=== PATIENT | male | born 1980 | race Caucasian/White ===

== ENCOUNTER 2016-04-09 06:01 | Observation (INO) | payer MEDICARE, MEDICAID ==
[2016-04-09] MEDS ORDERED: ONDANSETRON HCL INJ/PF 4 MG/2 ML SDV IV ONE ×2 (06:18→12:17)
[2016-04-09] MEDS ORDERED: NORMAL SALINE 1000 ML 1,000 ML IV ONE ×2 (06:18→07:51)
[2016-04-09 07:10] LABS: ABSOLUTE BASOPHILS # (AUTO) 0.1 10^3/uL (0.0-0.2); ABSOLUTE LYMPHOCYTES (AUTO) 1.3 10^3/uL (0.5-4.7); ABSOLUTE MONOCYTES (AUTO) 0.9 10^3/uL (0.1-1.4); ABSOLUTE NEUT (AUTO) 10.3 10^3/uL (1.7-8.2); BASOPHILS % (AUTO) 0.6 % (0-2); HEMOGLOBIN 17.9 g/dL (13.5-17.0); HGB HCT DIFFERENCE -0.3; LYMPHOCYTES % (AUTO) 10.4 % (13-45); MEAN CORPUSCULAR HEMOGLOBIN 32.5 pg (27.0-33.4); MEAN CORPUSCULAR HGB CONC 33.2 g/dL (32.0-36.0); MEAN CORPUSCULAR VOLUME 98 fl (80-97); MONOCYTES % (AUTO) 7.1 % (3-13); RED BLOOD COUNT 5.51 10^6/uL (4.35-5.55); RED CELL DISTRIBUTION WIDTH 13.6 % (11.5-14.0); SEGMENTED NEUTROPHILS % (AUTO) 81.9 % (42-78); WHITE BLOOD COUNT 12.6 10^3/uL (4.0-10.5)
[2016-04-09] MEDS ORDERED: METOCLOPRAMIDE HCL INJ/PF 10 MG/2 ML SDV IV ONE (07:51)
[2016-04-09] MEDS ORDERED: DIPHENHYDRAMINE HCL 50 MG/ML VIAL IV ONE (07:53)
--- NOTE | 2016-04-09 07:56 | ER Document Report ---
ED GI/ - General Chief Complaint: Nausea/Vomiting Stated Complaint: VOMITING Mode of Arrival: Ambulatory Information source: Patient Notes: Patient states that he has gradually been weaning himself off of Suboxone over the past 2 weeks. Patient states that he has been taking one strip a day for the past few days and stop 2 days ago. Patient states nausea and vomiting started yesterday. Patient's been unable to keep liquids down. Patient complains of abdominal pain from all the vomiting. TRAVEL OUTSIDE OF THE [place] IN LAST 30 DAYS: No - HPI Patient complains to provider of: Abdominal pain, Vomiting Onset: Yesterday Timing/Duration: Persistent Quality of pain: Cramping Pain Level: 3 Location: Other - Generalized abdomen Associated symptoms: Loss of appetite, Nausea, Vomiting. denies: Dysuria, Fever , Urinary hesitancy, Urinary frequency, Urinary retention, Urinary urgency Exacerbated by: Denies Relieved by: Denies Similar symptoms previously: No Recently seen / treated by doctor: No - Related Data Allergies/Adverse Reactions: carbamazepine [From Tegretol] Allergy (Verified 04/09/16 06:05) Past Medical History - General Information source: Patient - Social History Smoking Status: Current Every Day Smoker Chew tobacco use (# tins/day): No Frequency of alcohol use: None Drug Abuse: None Occupation: none Lives with: Family Family History: None Patient has suicidal ideation: No Patient has homicidal ideation: No - Past Medical History Cardiac Medical History: Denies: Hx Hypertension Pulmonary Medical History: Reports: Hx Asthma Neurological Medical History: Reports: Hx Migraine, Hx Seizures - After taking the medication Renal/ Medical History: Denies: Hx Peritoneal Dialysis GI Medical History: Reports: Hx Gastroesophageal Reflux Disease, Hx Irritable Bowel, Hx Ulcer Psychiatric Medical History: Reports: Hx Anxiety, Hx Attention Deficit Hyperactivity Disorder, Hx Bipolar Disorder, Hx Depression, Hx Post Traumatic Stress Disorder Traumatic Medical History: Reports: Hx Fractures - collar bone and arm as child Past Surgical History: Reports: Hx Oral Surgery - wisdom teeth - Immunizations Immunizations up to date: Yes Hx Diphtheria, Pertussis, Tetanus Vaccination: Yes - reports had tetanus immunization 6 months ago Review of Systems - Review of Systems Constitutional: No symptoms reported. denies: Fever, Recent illness EENT: No symptoms reported Cardiovascular: No symptoms reported. denies: Chest pain Respiratory: No symptoms reported. denies: Cough, Short of breath Gastrointestinal: Abdominal pain, Diarrhea, Nausea, Vomiting, Poor appetite, Poor fluid intake Genitourinary: No symptoms reported. denies: Dysuria Male Genitourinary: No symptoms reported Musculoskeletal: No symptoms reported Skin: No symptoms reported Hematologic/Lymphatic: No symptoms reported Neurological/Psychological: No symptoms reported. denies: Headaches Physical Exam - Vital signs Vitals: Temp Pulse Resp BP Pulse Ox 98.1 F 60 20 136/66 H 100 04/09/16 06:06 04/09/16 06:06 04/09/16 06:06 04/09/16 06:06 04/09/16 06:06 - General General appearance: Appears well, Alert In distress: None - HEENT Head: Normocephalic, Atraumatic Eyes: Normal Conjunctiva: Normal Nasal: Normal Mouth/Lips: Normal Mucous membranes: Dry Neck: Normal, Supple. No: Lymphadenopathy - Respiratory Respiratory status: No respiratory distress Chest status: Nontender Breath sounds: Normal. No: Rales, Rhonchi, Stridor, Wheezing Chest palpation: Normal - Cardiovascular Rhythm: Regular Heart sounds: S1 appreciated, S2 appreciated Murmur: No - Abdominal Inspection: Normal Distension: No distension Bowel sounds: Hyperactive Tenderness: Tender - Generalized abdominal tenderness Organomegaly: No organomegaly - Back Back: Normal. No: CVA tenderness - Extremities General upper extremity: Normal inspection, Normal strength General lower extremity: Normal inspection, Normal strength - Neurological Neuro grossly intact: Yes Cognition: Normal Orientation: AAOx4 [place] Coma Scale Eye Opening: Spontaneous [place] Coma Scale Verbal: Oriented Young Coma Scale Motor: Obeys Commands [place] Coma Scale Total: 15 - Psychological Associated symptoms: Normal affect, Normal mood - Skin Skin Temperature: Warm Skin Moisture: Dry Skin Color: Normal Course - Re-evaluation Re-evalutation: 04/09/16 11:11 Patient tolerating oral fluids. Abdomen soft, nontender. Patient states he can follow-up with his mental health provider for help with detox. Consulted with Dr. Coto regarding patient presentation, advises giving patient prescription for anti-medic and having him follow up with his primary doctor. 04/09/16 12:10 Patient has started vomiting again, patient complains of continued nausea. Additional medications ordered. 04/09/16 16:18 Patient resting, denies nausea at present. Discussed plan of care with intention to have patient admitted due to intractable vomiting. Patient agreeable with this plan of care. Consulted with Dr Key who agrees to admit patient as an observation to medical floor - Vital Signs Vital signs: Temp Pulse Resp BP Pulse Ox 99.2 F 56 L 16 133/71 H 99 04/09/16 17:47 04/09/16 17:47 04/09/16 17:47 04/09/16 17:47 04/09/16 17:47 - Laboratory Result Diagrams: 04/09/16 06:43 04/09/16 08:25 Laboratory results interpreted by me: 04/09/16 04/09/16 04/09/16 06:43 08:25 08:25 WBC 12.6 H Hgb 17.9 H Hct 54.0 H MCV 98 H Seg Neutrophils % 81.9 H Lymphocytes % 10.4 L Absolute Neutrophils 10.3 H AST 16 L ALT 19 L Lipase < 10.0 L Urine Protein Urine Ketones [place] < 0.2 L 04/09/16 08:40 WBC Hgb Hct MCV Seg Neutrophils % Lymphocytes % Absolute Neutrophils AST ALT Lipase Urine Protein 100 H Urine Ketones 80 H [place] 04/09/16 11:11 Labs- Entire Visit 04/09/16 04/09/16 04/09/16 06:43 06:43 08:25 WBC 12.6 H RBC 5.51 Hgb 17.9 H Hct 54.0 H MCV 98 H MCH 32.5 MCHC 33.2 RDW 13.6 Plt Count 388 Seg Neutrophils % 81.9 H Lymphocytes % 10.4 L Monocytes % 7.1 Eosinophils % 0.0 Basophils % 0.6 Absolute Neutrophils 10.3 H Absolute Lymphocytes 1.3 Absolute Monocytes 0.9 Absolute Eosinophils 0.0 Absolute Basophils 0.1 Sodium Cancelled 140.9 Potassium Cancelled 4.1 Chloride Cancelled 99 Carbon Dioxide Cancelled 28 Anion Gap Cancelled 14 BUN Cancelled 19 Creatinine Cancelled 0.75 Est GFR ( Amer) Cancelled > 60 Est GFR (Non-Af Amer) Cancelled > 60 Glucose Cancelled 110 Calcium Cancelled 9.1 Total Bilirubin Cancelled 0.4 Direct Bilirubin Cancelled 0.0 AST Cancelled 16 L ALT Cancelled 19 L Alkaline Phosphatase Cancelled 71 Total Protein Cancelled 6.7 Albumin Cancelled 4.0 Lipase < 10.0 L Urine Color Urine Appearance Urine pH Ur Specific [place] Urine Protein Urine Glucose (UA) Urine Ketones Urine Blood Urine Nitrite Urine Bilirubin Urine Urobilinogen Ur Leukocyte Esterase Urine WBC (Auto) Urine RBC (Auto) Squamous Epi Cells Auto Urine Mucus (Auto) Urine Ascorbic Acid 04/09/16 08:40 WBC RBC Hgb Hct MCV MCH MCHC RDW Plt Count Seg Neutrophils % Lymphocytes % Monocytes % Eosinophils % Basophils % Absolute Neutrophils Absolute Lymphocytes Absolute Monocytes Absolute Eosinophils Absolute Basophils Sodium Potassium Chloride Carbon Dioxide Anion Gap BUN Creatinine Est GFR ( Amer) Est GFR (Non-Af Amer) Glucose Calcium Total Bilirubin Direct Bilirubin AST ALT Alkaline Phosphatase Total Protein Albumin Lipase Urine Color YELLOW Urine Appearance SLIGHTLY-CLOUDY Urine pH 7.0 Ur Specific [place] 1.027 Urine Protein 100 H Urine Glucose (UA) NEGATIVE Urine Ketones 80 H Urine Blood NEGATIVE Urine Nitrite NEGATIVE Urine Bilirubin NEGATIVE Urine Urobilinogen NEGATIVE Ur Leukocyte Esterase NEGATIVE Urine WBC (Auto) 1 Urine RBC (Auto) 2 Squamous Epi Cells Auto <1 Urine Mucus (Auto) OCC Urine Ascorbic Acid NEGATIVE 04/09/16 16:19 Labs- Entire Visit 04/09/16 04/09/16 04/09/16 06:43 06:43 08:25 WBC 12.6 H RBC 5.51 Hgb 17.9 H Hct 54.0 H MCV 98 H MCH 32.5 MCHC 33.2 RDW 13.6 Plt Count 388 Seg Neutrophils % 81.9 H Lymphocytes % 10.4 L Monocytes % 7.1 Eosinophils % 0.0 Basophils % 0.6 Absolute Neutrophils 10.3 H Absolute Lymphocytes 1.3 Absolute Monocytes 0.9 Absolute Eosinophils 0.0 Absolute Basophils 0.1 Sodium Cancelled 140.9 Potassium Cancelled 4.1 Chloride Cancelled 99 Carbon Dioxide Cancelled 28 Anion Gap Cancelled 14 BUN Cancelled 19 Creatinine Cancelled 0.75 Est GFR ( Amer) Cancelled > 60 Est GFR (Non-Af Amer) Cancelled > 60 Glucose Cancelled 110 Calcium Cancelled 9.1 Total Bilirubin Cancelled 0.4 Direct Bilirubin Cancelled 0.0 AST Cancelled 16 L ALT Cancelled 19 L Alkaline Phosphatase Cancelled 71 Total Protein Cancelled 6.7 Albumin Cancelled 4.0 Lipase < 10.0 L Urine Color Urine Appearance Urine pH Ur Specific [place] Urine Protein Urine Glucose (UA) Urine Ketones Urine Blood Urine Nitrite Urine Bilirubin Urine Urobilinogen Ur Leukocyte Esterase Urine WBC (Auto) Urine RBC (Auto) Squamous Epi Cells Auto Urine Mucus (Auto) Urine Ascorbic Acid [place] 04/09/16 04/09/16 08:25 08:40 WBC RBC Hgb Hct MCV MCH MCHC RDW Plt Count Seg Neutrophils % Lymphocytes % Monocytes % Eosinophils % Basophils % Absolute Neutrophils Absolute Lymphocytes Absolute Monocytes Absolute Eosinophils Absolute Basophils Sodium Potassium Chloride Carbon Dioxide Anion Gap BUN Creatinine Est GFR ( Amer) Est GFR (Non-Af Amer) Glucose Calcium Total Bilirubin Direct Bilirubin AST ALT Alkaline Phosphatase Total Protein Albumin Lipase Urine Color YELLOW Urine Appearance SLIGHTLY-CLOUDY Urine pH 7.0 Ur Specific [place] 1.027 Urine Protein 100 H Urine Glucose (UA) NEGATIVE Urine Ketones 80 H Urine Blood NEGATIVE Urine Nitrite NEGATIVE Urine Bilirubin NEGATIVE Urine Urobilinogen NEGATIVE Ur Leukocyte Esterase NEGATIVE Urine WBC (Auto) 1 Urine RBC (Auto) 2 Squamous Epi Cells Auto <1 Urine Mucus (Auto) OCC Urine Ascorbic Acid NEGATIVE [place] < 0.2 L 04/09/16 16:59 Labs- Entire Visit 04/09/16 04/09/16 04/09/16 06:43 06:43 08:25 WBC 12.6 H RBC 5.51 Hgb 17.9 H Hct 54.0 H MCV 98 H MCH 32.5 MCHC 33.2 RDW 13.6 Plt Count 388 Seg Neutrophils % 81.9 H Lymphocytes % 10.4 L Monocytes % 7.1 Eosinophils % 0.0 Basophils % 0.6 Absolute Neutrophils 10.3 H Absolute Lymphocytes 1.3 Absolute Monocytes 0.9 Absolute Eosinophils 0.0 Absolute Basophils 0.1 Sodium Cancelled 140.9 Potassium Cancelled 4.1 Chloride Cancelled 99 Carbon Dioxide Cancelled 28 Anion Gap Cancelled 14 BUN Cancelled 19 Creatinine Cancelled 0.75 Est GFR ( Amer) Cancelled > 60 Est GFR (Non-Af Amer) Cancelled > 60 Glucose Cancelled 110 Calcium Cancelled 9.1 Total Bilirubin Cancelled 0.4 Direct Bilirubin Cancelled 0.0 AST Cancelled 16 L ALT Cancelled 19 L Alkaline Phosphatase Cancelled 71 Total Protein Cancelled 6.7 Albumin Cancelled 4.0 Lipase < 10.0 L Urine Color Urine Appearance Urine pH Ur Specific [place] Urine Protein Urine Glucose (UA) Urine Ketones Urine Blood Urine Nitrite Urine Bilirubin Urine Urobilinogen Ur Leukocyte Esterase Urine WBC (Auto) Urine RBC (Auto) Squamous Epi Cells Auto Urine Mucus (Auto) Urine Ascorbic Acid [place] 04/09/16 04/09/16 08:25 08:40 WBC RBC Hgb Hct MCV MCH MCHC RDW Plt Count Seg Neutrophils % Lymphocytes % Monocytes % Eosinophils % Basophils % Absolute Neutrophils Absolute Lymphocytes Absolute Monocytes Absolute Eosinophils Absolute Basophils Sodium Potassium Chloride Carbon Dioxide Anion Gap BUN Creatinine Est GFR ( Amer) Est GFR (Non-Af Amer) Glucose Calcium Total Bilirubin Direct Bilirubin AST ALT Alkaline Phosphatase Total Protein Albumin Lipase Urine Color YELLOW Urine Appearance SLIGHTLY-CLOUDY Urine pH 7.0 Ur Specific [place] 1.027 Urine Protein 100 H Urine Glucose (UA) NEGATIVE Urine Ketones 80 H Urine Blood NEGATIVE Urine Nitrite NEGATIVE Urine Bilirubin NEGATIVE Urine Urobilinogen NEGATIVE Ur Leukocyte Esterase NEGATIVE Urine WBC (Auto) 1 Urine RBC (Auto) 2 Squamous Epi Cells Auto <1 Urine Mucus (Auto) OCC Urine Ascorbic Acid NEGATIVE [place] < 0.2 L 04/09/16 18:24 Discharge - Discharge Clinical Impression: Opioid withdrawal Vomiting Qualifiers: Vomiting type: unspecified Vomiting Intractability: intractable Nausea presence : with nausea Qualified Code(s): R11.2 - Nausea with vomiting, unspecified Condition: Stable Disposition: ADMITTED OBSERVATION Admitting Provider: [facility] Admitted: Medical Floor
[2016-04-09 09:02] LABS: ALANINE AMINOTRANSFERASE 19 U/L (21-72); ALKALINE PHOSPHATASE 71 U/L (38-126); ANION GAP 14 (5-19); ASPARTATE AMINO TRANSFERASE 16 U/L (17-59); BILIRUBIN,TOTAL 0.4 mg/dL (0.2-1.3); BLOOD UREA NITROGEN 19 mg/dL (7-20); CALCIUM 9.1 mg/dL (8.4-10.2); CARBON DIOXIDE 28 mmol/L (22-30); CHLORIDE 99 mmol/L (98-107); CREATININE RESULT 0.75 mg/dL (0.52-1.25); GLUCOSE 110 mg/dL (75-110); POTASSIUM 4.1 mmol/L (3.6-5.0); SODIUM 140.9 mmol/L (137-145); TOTAL PROTEIN 6.7 g/dL (6.3-8.2)
[2016-04-09 09:03] LABS: LIPASE < 10.0 U/L (23-300)
[2016-04-09 09:13] LABS: APPEARANCE,URINE SLIGHTLY-CLOUDY; BILIRUBIN,URINE NEGATIVE (NEGATIVE); GLUCOSE, URINE NEGATIVE (NEGATIVE); KETONES,URINE 80 mg/dL (NEGATIVE); LEUKOCYTE ESTERASE,URINE NEGATIVE (NEGATIVE); NITRITE,URINE NEGATIVE (NEGATIVE); PROTEIN,URINE 100 mg/dL (NEGATIVE); URINE SPECIFIC GRAVITY 1.027; UROBILINOGEN,URINE NEGATIVE mg/dL (<2.0)
[2016-04-09 11:46] LABS: ADD ON TESTING BLD IN LAB ACKNOWLEDGE
[2016-04-09 11:53] LABS: LITHIUM < 0.2 mEq/L (0.6-1.2)
[2016-04-09] MEDS ORDERED: NORMAL SALINE 1000 ML 1,000 ML IV PRN ×2 (12:08→17:43)
[2016-04-09] MEDS ORDERED: PROMETHAZINE HCL 25 MG SUPP.RECT PR ONE (14:37)
[2016-04-09] MEDS ORDERED: FAMOTIDINE INJ/PF 20 MG/2 ML SDV IV ONE (14:40)
--- NOTE | 2016-04-09 22:54 | PDOC H&P ---
History of Present Illness Admission Date/PCP: 04/09/16 18:02 VINAY WATERMAN, History of Present Illness: ANDRE MUNOZ JR is a 35 year old male, he came to emergency room because of persistent vomiting, he was trying to wean himself off Suboxone the last 2 weeks. In the emergency room, the vomiting could not be controlled on admission in 2 days and he was advised by the ED providers. I saw him in emergency room he was seen in the stretcher, is not presently vomiting, he stated to me in the past that he was going to come of the Suboxone, but advised seen to seek medical consultation before stopping the medication because of potential for withdrawal symptoms and that is most likely what he is presently experiencing. Past Medical History Pulmonary Medical History: Reports: Asthma Neurological Medical History: Reports: Migraine, Seizures - After taking the medication GI Medical History: Reports: Crohn's Disease, Gastroesophageal Reflux Disease Psychiatric Medical History: Reports: Attention Deficit Hyperactivity Disorder, Bipolar Disorder, Depression, Post Traumatic Stress Disorder, Substance Abuse - A history of heroin abuse Social History Information Source: Patient Lives with: Family Smoking Status: Current Every Day Smoker Frequency of Alcohol Use: Occasional Hx Recreational Drug Use: Yes Drugs: Marijuana Hx Prescription Drug Abuse: No - Advance Directive Resuscitation Status: Full Code Family History Family History: None Parental Family History Reviewed: Yes Children Family History Reviewed: Yes Sibling(s) Family History Reviewed.: Yes Medication/Allergy Home Medications: Bupropion HCl [Bupropion Xl] 150 mg PO DAILY 04/09/16 [place] Carbonate [Lithobid 300 mg Capsule] 300 mg PO DAILY 04/09/16 Omeprazole Magnesium [Prilosec Otc] 40 mg PO DAILY 04/09/16 Quetiapine Fumarate [Seroquel] 300 mg PO DAILY 04/09/16 Quetiapine Fumarate [Seroquel] 400 mg PO DAILY 04/09/16 Allergies/Adverse Reactions: carbamazepine [From Tegretol] Allergy (Verified 04/09/16 06:05) Review of Systems Constitutional: PRESENT: anorexia Cardiovascular: ABSENT: as per HPI, chest pain, dyspnea on exertion, edema, orthropnea, palpitations, other Respiratory: ABSENT: cough, hemoptysis Gastrointestinal: PRESENT: vomiting Genitourinary: ABSENT: dysuria, hematuria Musculoskeletal: ABSENT: joint swelling Integumentary: ABSENT: rash, wounds Neurological: ABSENT: abnormal gait, abnormal speech, confusion, dizziness, focal weakness, syncope Psychiatric: PRESENT: depression Endocrine: ABSENT: cold intolerance, heat intolerance, menstrual abnormalities, polydipsia, polyuria Hematologic/Lymphatic: ABSENT: easy bleeding, easy bruising, lymphadenopathy Physical Exam Vital Signs: Temp Pulse Resp BP Pulse Ox 98.7 F 66 18 140/76 H 99 04/09/16 21:19 04/09/16 21:19 04/09/16 21:19 04/09/16 21:19 04/09/16 21:19 General appearance: PRESENT: no acute distress, well-developed, well-nourished Head exam: PRESENT: atraumatic, normocephalic Eye exam: PRESENT: conjunctiva pink, EOMI, PERRLA Ear exam: PRESENT: normal external ear exam Mouth exam: PRESENT: moist, tongue midline Respiratory exam: PRESENT: clear to auscultation [place] Cardiovascular exam: PRESENT: RRR, +S1, +S2 GI/Abdominal exam: PRESENT: soft Rectal exam: PRESENT: deferred Neurological exam: PRESENT: alert, CN II-XII grossly intact Skin exam: PRESENT: dry, intact, warm Assessment & Plan - Diagnosis (1) Intractable vomiting Qualifiers: Vomiting type: unspecified Nausea presence: with nausea Qualified Code(s): R11.2 - Nausea with vomiting, unspecified Is this a current diagnosis for this admission?: YesPlan: Patient was admitted directly into the hospital for observation and hydration (2) History of substance abuse Is this a current diagnosis for this admission?: Yes
[2016-04-10] MEDS ORDERED: ONDANSETRON HCL INJ/PF 4 MG/2 ML SDV ONE (00:31)
[2016-04-10] MEDS ORDERED: ONDANSETRON HCL INJ/PF 4 MG/2 ML SDV IV PRN (00:35)
[2016-04-10 04:22] LABS: HEMATOCRIT 44.3 % (37.9-51.0); HGB HCT DIFFERENCE -1.7; MEAN CORPUSCULAR HEMOGLOBIN 32.2 pg (27.0-33.4); MEAN CORPUSCULAR HGB CONC 32.1 g/dL (32.0-36.0); MEAN CORPUSCULAR VOLUME 100 fl (80-97); RED BLOOD COUNT 4.42 10^6/uL (4.35-5.55); RED CELL DISTRIBUTION WIDTH 13.2 % (11.5-14.0); WHITE BLOOD COUNT 8.9 10^3/uL (4.0-10.5)
[2016-04-10 04:32] LABS: ANION GAP 11 (5-19); BLOOD UREA NITROGEN 14 mg/dL (7-20); CARBON DIOXIDE 23 mmol/L (22-30); CHLORIDE 104 mmol/L (98-107); CREATININE RESULT 0.57 mg/dL (0.52-1.25); GLUCOSE 135 mg/dL (75-110); POTASSIUM 3.6 mmol/L (3.6-5.0); SODIUM 137.5 mmol/L (137-145)
[2016-04-10 04:54] LABS: HEMOGLOBIN 14.2 g/dL (13.5-17.0)
[2016-04-10 07:31] VITALS: BP 155/86
[2016-04-10] MEDS ORDERED: ENOXAPARIN SODIUM INJ 40 MG/0.4 ML DISP.SYRIN SUBCUT SCH (08:00)
--- NOTE | 2016-04-12 14:04 | PDOC DISCHARGE SUMMARY ---
General - Admit/Disc Date/PCP Admission Date/Primary Care Provider: 04/09/16 18:02 VINAY WATERMAN, Discharge Date: 04/10/16 - Discharge Diagnosis (1) Intractable vomiting Is this a current diagnosis for this admission?: Yes (2) History of substance abuse Is this a current diagnosis for this admission?: Yes - Additional Information Resuscitation Status: Full Code Home Medications: Bupropion HCl [Bupropion Xl] 150 mg PO DAILY 04/09/16 [place] Carbonate [Lithobid 300 mg Capsule] 300 mg PO DAILY 04/09/16 Omeprazole Magnesium [Prilosec Otc] 40 mg PO DAILY 04/09/16 Quetiapine Fumarate [Seroquel] 300 mg PO DAILY 04/09/16 Quetiapine Fumarate [Seroquel] 400 mg PO DAILY 04/09/16 History of Present Illness History of Present Illness: ANDRE MUNOZ JR is a 35 year old male, he came to emergency room because of persistent vomiting, he was trying to wean himself off Suboxone the last 2 weeks. In the emergency room, the vomiting could not be controlled on admission in 2 days and he was advised by the ED providers. I saw him in emergency room he was seen in the stretcher, is not presently vomiting, he stated to me in the past that he was going to come of the Suboxone, but advised seen to seek medical consultation before stopping the medication because of potential for withdrawal symptoms and that is most likely what he is presently experiencing. Hospital Course Hospital Course: Patient was admitted because of intractable vomiting, he was treated with IV hydration, but patient signed AGAINST MEDICAL ADVICE and left before but management was complete Physical Exam Vital Signs: Temp Pulse Resp BP Pulse Ox 98.4 F 50 L 12 155/86 H 100 04/10/16 04:42 04/10/16 04:42 04/10/16 04:42 04/10/16 04:42 04/10/16 04:42 Intake & Output 04/11/16 04/12/16 04/13/16 06:59 06:59 06:59 Intake Total 300 Balance 300 General appearance: PRESENT: no acute distress Results Laboratory Results: 04/10/16 03:42 04/10/16 03:42
== END 2016-04-10 12:20 | disposition left against medical advice (07) ==
LOC: ER 06:01 → EH 16:28 → UNDOADMOB 16:28 → EH 18:02 → 3N 23:35
PROVIDERS: ADMIT Internal Medicine; ATTEND Internal Medicine
DX: R11.2 Nausea with vomiting, unspecified (principal); F11.10 Opioid abuse, uncomplicated; J45.909 Unspecified asthma, uncomplicated; K50.90 Crohn's disease, unspecified, without complications; K21.9 Gastro-esophageal reflux disease without esophagitis; F90.9 Attention-deficit hyperactivity disorder, unspecified type; F31.9 Bipolar disorder, unspecified; F43.10 Post-traumatic stress disorder, unspecified; F17.210 Nicotine dependence, cigarettes, uncomplicated
CPT/HCPCS: 96376; 99284; 96361; 96374; 96375; 36415 ×2; 83690; 80178; 85025; 85027; 80048; 80053; 81001; G0378 ×2; J1200; J1650; A9270; J3490; J2405 ×2; J7030; S0028

== ENCOUNTER 2019-11-24 23:25 | Emergency (ER) | payer MEDICARE, MEDICAID ==
[2019-11-25 02:09] LABS: APPEARANCE,URINE SLIGHTLY-CLOUDY; BILIRUBIN,URINE NEGATIVE (NEGATIVE); COLOR,URINE YELLOW; GLUCOSE, URINE NEGATIVE (NEGATIVE); KETONES,URINE NEGATIVE (NEGATIVE); LEUKOCYTE ESTERASE,URINE NEGATIVE (NEGATIVE); NITRITE,URINE NEGATIVE (NEGATIVE); PROTEIN,URINE NEGATIVE (NEGATIVE); URINE SPECIFIC GRAVITY 1.023
[2019-11-25 02:12] LABS: ABSOLUTE BASOPHILS # (AUTO) 0.1 10^3/uL (0.0-0.2); ABSOLUTE EOSINOPHILS # (AUTO) 0.2 10^3/uL (0.0-0.6); ABSOLUTE MONOCYTES (AUTO) 0.9 10^3/uL (0.1-1.4); ABSOLUTE NEUT (AUTO) 6.2 10^3/uL (1.7-8.2); BASOPHILS % (AUTO) 0.8 % (0-2); EOSINOPHILS % (AUTO) 1.4 % (0-6); HEMATOCRIT 47.1 % (37.9-51.0); LYMPHOCYTES % (AUTO) 35.5 % (13-45); MEAN CORPUSCULAR HEMOGLOBIN 33.6 pg (27.0-33.4); MEAN CORPUSCULAR VOLUME 99 fl (80-97); MONOCYTES % (AUTO) 7.7 % (3-13); PLATELET COUNT 403 10^3/uL (150-450); RED BLOOD COUNT 4.76 10^6/uL (4.35-5.55); RED CELL DISTRIBUTION WIDTH 13.5 % (11.5-14.0); SEGMENTED NEUTROPHILS % (AUTO) 54.6 % (42-78); TOTAL CELLS COUNTED % (AUTO) 100 %; WHITE BLOOD COUNT 11.3 10^3/uL (4.0-10.5)
[2019-11-25 02:29] LABS: ALBUMIN 4.3 g/dL (3.5-5.0); ALKALINE PHOSPHATASE 49 U/L (38-126); ANION GAP 9 (5-19); ASPARTATE AMINO TRANSFERASE 26 U/L (17-59); BILIRUBIN,DIRECT 0.3 mg/dL (0.0-0.4); BILIRUBIN,TOTAL 0.5 mg/dL (0.2-1.3); BLOOD UREA NITROGEN 17 mg/dL (7-20); CALCIUM 9.5 mg/dL (8.4-10.2); CARBON DIOXIDE 24 mmol/L (22-30); CHLORIDE 107 mmol/L (98-107); GLUCOSE 106 mg/dL (75-110); POTASSIUM 4.7 mmol/L (3.6-5.0); TOTAL PROTEIN 6.9 g/dL (6.3-8.2)
[2019-11-25] MEDS ORDERED: MORPHINE SULFATE 10 MG/ML INJ IV ONE (04:35)
[2019-11-25] MEDS ORDERED: NORMAL SALINE 1000 ML 1,000 ML IV ONE (04:35)
[2019-11-25] MEDS ORDERED: ONDANSETRON HCL INJ/PF 4 MG/2 ML SDV IV ONE (04:36)
--- NOTE | 2019-11-25 04:40 | ER Document Report ---
Entered by ROSANNA CAMARILLO SCRIBE 11/25/19 0438 Acting as scribe for:MATT KOHLI IV, MD ED GI/ - General Mode of Arrival: Ambulatory Information source: Patient TRAVEL OUTSIDE OF THE [place] IN LAST 30 DAYS: No <MATT KOHLI IV - Last Filed: 11/25/19 06:44> <ALBERTOREBEKAH - Last Filed: 11/25/19 08:53> - General Chief Complaint: Abdominal Pain Stated Complaint: ABDOMINAL PAIN Time Seen by Provider: 11/25/19 04:28 Primary Care Provider: VINAY WATERMAN MD [Primary Care Provider] - Follow up as needed Notes: This 39 year old male patient presents to the ED today with complaints of epigastric pain that started yesterday morning. Patient states that the pain worsened throughout the day and now radiates into his back. Denies nausea or vomiting. Denies history of pancreatitis or ETOH use. (MATT KOHLI IV) - Related Data Allergies/Adverse Reactions: carbamazepine [From Tegretol] Allergy (Verified 11/25/19 01:22) Past Medical History - General Information source: Patient, [facility] Records - Social History Smoking Status: Current Every Day Smoker Smoking Education Provided: No Frequency of alcohol use: None Drug Abuse: None Family History: Reviewed & Not Pertinent Patient has suicidal ideation: No Patient has homicidal ideation: No Pulmonary Medical History: Reports: Hx Asthma Neurological Medical History: Reports: Hx Migraine, Hx Seizures - After taking the medication GI Medical History: Reports: Hx Crohn's Disease, Hx Gastroesophageal Reflux Dis ease, Hx Irritable Bowel, Hx Ulcer Psychiatric Medical History: Reports: Hx Anxiety, Hx Attention Deficit Hyperactivity Disorder, Hx Bipolar Disorder, Hx Depression, Hx Post Traumatic Stress Disorder, Hx Schizophrenia Traumatic Medical History: Reports: Hx Fractures - collar bone and arm as child Past Surgical History: Reports: Hx Oral Surgery - wisdom teeth - Immunizations Immunizations up to date: Yes Hx Diphtheria, Pertussis, Tetanus Vaccination: Yes - reports had tetanus immunization 6 months ago <MATT KOHLI IV - Last Filed: 11/25/19 06:44> Review of Systems - Review of Systems Constitutional: No symptoms reported EENT: No symptoms reported Cardiovascular: No symptoms reported Respiratory: No symptoms reported Gastrointestinal: See HPI, Abdominal pain. denies: Nausea, Vomiting Genitourinary: No symptoms reported Male Genitourinary: No symptoms reported Musculoskeletal: See HPI, Back pain Skin: No symptoms reported Hematologic/Lymphatic: No symptoms reported Neurological/Psychological: No symptoms reported -: Yes All other systems reviewed and negative <MATT KOHLI IV - Last Filed: 11/25/19 06:44> Physical Exam - General General appearance: Appears well, Alert In distress: None - HEENT Head: Normocephalic, Atraumatic Eyes: Normal Pupils: PERRL - Respiratory Respiratory status: No respiratory distress Chest status: Nontender Breath sounds: Normal Chest palpation: Normal - Cardiovascular Rhythm: Regular Heart sounds: Normal auscultation Murmur: No Friction rub: No Gallop: None auscultated - Abdominal Inspection: Normal Distension: No distension Bowel sounds: Normal - No aortic bruits Tenderness: Tender - Epigastric tenderness to palpation, Other - Abdomen soft. No: Guarding, Rebound Organomegaly: No organomegaly. No: Mass - No pulsatile masses - Back Back: Normal, Nontender - Extremities General upper extremity: Normal inspection General lower extremity: Normal inspection. No: Edema - Neurological Neuro grossly intact: Yes Orientation: AAOx4 [place] Coma Scale Eye Opening: Spontaneous [place] Coma Scale Verbal: Oriented [place] Coma Scale Motor: Obeys Commands [place] Coma Scale Total: 15 - Psychological Associated symptoms: Normal affect, Normal mood - Skin Skin Temperature: Warm Skin Moisture: Dry Skin Color: Normal <MATT KOHLI IV - Last Filed: 11/25/19 06:44> - Vital signs Vitals: Temp Pulse Resp BP Pulse Ox 98.2 F 90 16 147/93 H 97 11/24/19 23:39 11/24/19 23:39 11/24/19 23:39 11/24/19 23:39 11/24/19 23:39 Course - Laboratory Result Diagrams: 11/25/19 01:29 11/25/19 01:29 - Transfer of Care Care transferred to following provider: dr suresh at 0643 <MATT KOHLI JULIANA - Last Filed: 11/25/19 06:44> - Laboratory Result Diagrams: 11/25/19 01:29 11/25/19 01:29 - Diagnostic Test Radiology reviewed: Reports reviewed <REBEKAH DOMINGUEZ - Last Filed: 11/25/19 08:53> - Re-evaluation Re-evalutation: 11/25/19 08:44 CT abdomen report reviewed. Per radiology, no adjacent inflammation or peripancreatic fluid collections. Final impression no significant or acute findings in the abdomen or pelvis. 11/25/19 08:51 I went in and updated the patient on the results. He is well-appearing, he feels comfortable going home. I discussed with him need for PCP follow-up for further work-up of recurrent pancreatitis. He will be discharged with Tiara and Kenisha. Return precautions given, stable at time of discharge. (REBEKAH DOMINGUEZ) - Vital Signs Vital signs: Temp Pulse Resp BP Pulse Ox 98.2 F 90 16 147/93 H 97 11/25/19 01:22 11/24/19 23:39 11/24/19 23:39 11/24/19 23:39 11/24/19 23:39 - Laboratory Laboratory results interpreted by me: 11/25/19 11/25/19 11/25/19 01:29 01:29 01:41 WBC 11.3 H MCV 99 H MCH 33.6 H Lipase 594.9 H Urine Urobilinogen 2.0 H Urine Ascorbic Acid 40 H Discharge <MATT KOHLI IV - Last Filed: 11/25/19 06:44> <REBEKAH DOMINGUEZ - Last Filed: 11/25/19 08:53> - Discharge Clinical Impression: Pancreatitis Qualifiers: Chronicity: acute Pancreatitis type: other Acute pancreatitis complication: unspecified Qualified Code(s): K85.80 - Other acute pancreatitis without necros is or infection Condition: Stable Disposition: HOME, SELF-CARE Additional Instructions: Return to the Emergency Department without delay if any worse. Pancreatitis Pancreatitis is an inflammation of the pancreas, an organ at the back of your abdomen. The pancreas produces insulin and enzymes that digest your food. Pancreatitis can be caused by gallstones in the bile duct, by alcohol or viruses, or by excess fat or calcium in the blood stream. Occasionally, pancreatitis occurs when a stomach ulcer conrad through into the pancreas. We try to find the cause of pancreatitis, but some tests can't be done until the pancreas heals. The usual symptoms of pancreatitis are pain in the pit of the stomach that goes straight through to the back, vomiting, and low-grade fever. Severe cases require hospital admission, but many patients with mild pancreatitis do well at home. You will probably need medicine for pain and for vomiting. Sometimes we prescribe medicine to decrease stomach acid secretion and to decrease flow of pancreatic juices. Start with a diet of clear liquids (soda pop, juices). When the pain is decreasing, you can add some simple starches (potato, toast, applesauce). Avoid proteins and fats until you are completely painfree. When you're better, your doctor may suggest treatment to prevent future pancreatitis (such as gallbladder removal). Avoid alcohol forever. Get im mediate treatment for any future episodes. Contact your doctor at once or return here if you have increasing pain, shortness of breath, general swelling, increasing size of the abdomen, continued vomiting, muscle spasms, or other new symptoms. HOME CARE INSTRUCTIONS & INFORMATION: Thank you for choosing us for your medical needs. We hope you're satisfied with the care you received. After you leave, you must properly care for your problem and, at the same time, observe its progress. Any condition can change. Some illnesses can change rapidly over hours or days. If your condition worsens, return to the Emergency Department or see your physician promptly. ABOUT YOUR X-RAYS AND EKG'S: If you had an EKG or X-rays taken, they have been read by the Emergency Physician. The X-rays and EKG's will also be read by a Radiologist or Boiler Coverer Helper within 24 hours. If discrepancies are noted, you will be notified by telephone. Please be certain the ED has a correct telephone number & address where you can be reached. Also, realize that some fractures or abnormalities do not show up on initial X-rays. If your symptoms continue, see your physician. ABOUT YOUR LABORATORY TEST: If you had laboratory tests, the results have been reviewed by the Emergency Physician. Some test results (for example cultures) may not be available for several days. You will be contacted if any test result shows you need additional treatment. Please be certain the ED has a correct telephone number and address where you can be reached. ABOUT YOUR MEDICATIONS: You will receive instructions on how to take your medicine on the prescription label you receive. Additional information may be provided by the Pharmacy. If you have questions afterwards, call the ED for clarification or further instructions. Some prescribed medications may cause drowsiness. Do not perform tasks such as driving a car or operating machinery without consulting your Pharmacist. If you feel you need a refill of pain medication, your condition will need re-evaluation. Please do not call for a refill of any medication. ABOUT YOUR SIGNATURE: Signature of this document acknowledges to followin. Understanding that you received emergency treatment and that you may be released before al medical problems are known or treated. Please be certain the ED has a correct phone number & address where you can be reached. 2. Acknowledgement that you will arrange for follow-up care as recommended. 3. Authorization for the Emergency Physician to provide information to your follow-up Physician in order to maximize your care. AT ANY TIME, IF YOUR SYMPTOMS CHANGE SIGNIFICANTLY OR WORSEN OR YOU DEVELOP NEW SYMPTOMS, RETURN TO THE EMERGENCY DEPARTMENT IMMEDIATELY FOR RE-EVALUATION. OUR GOAL IS TO PROVIDE EXCELLENT MEDICAL CARE! WE HOPE THAT WE HAVE MET YOUR EXPECTATIONS DURING YOUR EMERGENCY DEPARTMENT VISIT AND THAT YOU FEEL YOU HAVE RECEIVED EXCELLENT CARE! Prescriptions: Hydrocodone/Acetaminophen [[place] 5-325 mg Tablet] 1 tab PO Q4H PRN #20 tablet PRN Reason: For Pain Ondansetron [Zofran Odt 4 mg Tablet] 1 - 2 tab PO Q4H PRN #15 tab.rapdis PRN Reason: For Nausea/Vomiting Referrals: VINAY WATERMAN MD [Primary Care Provider] - Follow up as needed I personally performed the services described in the documentation, reviewed and edited the documentation which was dictated to the scribe in my presence, and it accurately records my words and actions.
--- NOTE | 2019-11-25 08:37 | RADIOLOGY REPORT (SQ) ---
EXAM DESCRIPTION: CT ABD/PELVIS WITH IV ORAL IMAGES COMPLETED DATE/TIME: 11/25/2019 7:02 am REASON FOR STUDY: epigastric pain COMPARISON: 08/24/2014. TECHNIQUE: CT scan of the abdomen and pelvis performed with intravenous and oral contrast using lissa randa scanning technique with dynamic intravenous contrast injection. Images reviewed with lung, soft t issue, and bone windows. Reconstructed coronal and sagittal MPR images reviewed. Delayed images for e valuation of the urinary system also acquired. All images stored on PACS. All CT scanners at this facility use dose modulation, iterative reconstruction, and/or weight based d osing when appropriate to reduce radiation dose to as low as reasonably achievable (ALARA). [facility]: Dose Right [facility]: CareDose [facility]: Dose Right [facility]: Teradose 4D [facility]: [employer] CONTRAST TYPE AND DOSE: contrast/concentration: Isovue 350.00 mmol/ml; Total Contrast Delivered: 85. 0 ml; Total Saline Delivered: 69.0 ml RENAL FUNCTION: BUN 17 creatinine 0.69. RADIATION DOSE: CT Rad equipment meets quality standard of care and radiation dose reduction techniq ues were employed. CTDIvol: 5.6 - 7.4 mGy. DLP: 712 mGy-cm.. LIMITATIONS: None. FINDINGS: LOWER CHEST: No significant findings. No nodules or infiltrates. LIVER: Normal size. No masses. No dilated ducts. SPLEEN: Normal size. No focal lesions. PANCREAS: No masses. No significant calcifications. No adjacent inflammation or peripancreatic fluid collections. Pancreatic duct not dilated. GALLBLADDER: No identified stones by CT criteria. No inflammatory changes to suggest cholecystitis. ADRENAL GLANDS: No significant masses or asymmetry. RIGHT KIDNEY AND URETER: No solid masses. No significant calcification. No hydronephrosis or hydroure ter. LEFT KIDNEY AND URETER: No solid masses. No significant calcification. No hydronephrosis or hydrouret er. AORTA AND VESSELS: No aneurysm. No dissection. Renal arteries, SMA, celiac without stenosis. RETROPERITONEUM: No retroperitoneal adenopathy, hemorrhage or masses. BOWEL AND PERITONEAL CAVITY: No obstruction. No visualized masses. No free fluid. No inflammatory ch anges or thickening of bowel wall. APPENDIX: Not visualized. PELVIS: No significant masses. Normal bladder. No free fluid. ABDOMINAL WALL: No masses. No hernias. BONES: No significant or acute findings. OTHER: No other significant finding. IMPRESSION: NO SIGNIFICANT OR ACUTE FINDINGS IN THE ABDOMEN OR PELVIS. TECHNICAL DOCUMENTATION: JOB ID: [id number] Quality ID # [id number]: Final reports with documentation of one or more dose reduction techniques (e.g., Au tomated exposure control, adjustment of the mA and/or kV according to patient size, use of iterative reconstruction technique) 2010 [employer]- All Rights Reserved Reading location - IP/workstation name: [email or web address]
[2019-11-25 09:18] VITALS: BP 157/90
== END 2019-11-25 09:16 | disposition home or self-care (01) ==
LOC: ER 23:25
DX: K85.90 Acute pancreatitis without necrosis or infection, unspecified (principal); R10.13 Epigastric pain; R10.816 Epigastric abdominal tenderness; M54.9 Dorsalgia, unspecified; J45.909 Unspecified asthma, uncomplicated; F17.200 Nicotine dependence, unspecified, uncomplicated; Z87.19 Personal history of other diseases of the digestive system; Z88.8 Allergy status to other drugs, medicaments and biological substances
CPT/HCPCS: 99285; 96361; 96374; 96375; 36415; 83690; 85025; 80053; 81001; 74177; J2270; J2405; J7030

== ENCOUNTER 2019-11-29 08:03 | Emergency (ER) | payer MEDICARE, MEDICAID ==
[2019-11-29] MEDS ORDERED: FENTANYL CITRATE INJ/PF 100 MCG/2 ML AMPUL IV ONE (09:19)
[2019-11-29] MEDS ORDERED: KETOROLAC TROMETHAMINE INJ/PF 30 MG/1 ML SDV IV ONE (09:19)
[2019-11-29] MEDS ORDERED: METOCLOPRAMIDE HCL INJ/PF 10 MG/2 ML SDV IV ONE (09:19)
--- NOTE | 2019-11-29 09:21 | ER Document Report ---
ED General - General Chief Complaint: Abdominal Pain Stated Complaint: ABDOMINAL PAIN Time Seen by Provider: 11/29/19 09:13 Primary Care Provider: VINAY WATERMAN MD [Primary Care Provider] - Follow up as needed Notes: Presents epigastric pain "is my pancreatitis" which is going on for last few days. He was seen here 3 days ago diagnosed with mild pancreatitis discharged home with Percocet and antiemetics. He promptly resumed the [employer] diet and drink several bloody Zenobia's. His imaging last time was normal. TRAVEL OUTSIDE OF THE [place] IN LAST 30 DAYS: No - Related Data Allergies/Adverse Reactions: carbamazepine [From Tegretol] Allergy (Verified 11/25/19 01:22) Home Medications: clonidine Past Medical History - General Information source: Patient - Social History Smoking Status: Current Every Day Smoker Frequency of alcohol use: Rare Drug Abuse: None Family History: Reviewed & Not Pertinent - Past Medical History Cardiac Medical History: Denies: Hx Hypertension Pulmonary Medical History: Reports: Hx Asthma Neurological Medical History: Reports: Hx Migraine, Hx Seizures - After taking the medication Renal/ Medical History: Denies: Hx Peritoneal Dialysis GI Medical History: Reports: Hx Crohn's Disease, Hx Gastroesophageal Reflux Disease, Hx Irritable Bowel, Hx Ulcer Psychiatric Medical History: Reports: Hx Anxiety, Hx Attention Deficit Hypera ctivity Disorder, Hx Bipolar Disorder, Hx Depression, Hx Post Traumatic Stress Disorder, Hx Schizophrenia Traumatic Medical History: Reports: Hx Fractures - collar bone and arm as child Past Surgical History: Reports: Hx Oral Surgery - wisdom teeth - Immunizations Immunizations up to date: Yes Hx Diphtheria, Pertussis, Tetanus Vaccination: Yes - reports had tetanus immunization 6 months ago Review of Systems - Review of Systems Notes: REVIEW OF SYSTEMS GEN: Denies fever, chills, weight loss ENT: Denies sore throat, nasal discharge, ear pain EYES: Denies blurry vision, eye pain, discharge CV: Denies chest pain, palpitations, edema RESP: Denies cough, shortness of breath, wheezing GI: Abdominal pain and nausea SKIN: Denies rash, skin lesions LYMPH: Denies swollen glands/lymph nodes NEURO: Denies headache, focal weakness or numbness, dizziness PSYCH: Denies depression, suicidal or homicidal ideation PHYSICAL EXAMINATION General: No acute distress, well-nourished Head: Atraumatic, normocephalic ENT: Mouth normal, oropharynx moist, no exudates or tonsillar enlargement Eyes: Conjunctiva normal, pupils equal, lids normal Neck: No JVD, supple, no guarding CVS: Normal rate, regular rhythm, no murmurs Resp: No resp distress, equal and normal breath sounds bilaterally GI: Nondistended, soft, minimal epigastric tenderness no rebound or guarding guarding Ext: No deformities, no edema, normal range of motion in upper and lower ext Back: No CVA or midline TTP Skin: No rash, warm Lymphatic: No lymphadeopathy noted Neuro: Awake, alert. Face symmetric. GCS 15. Physical Exam - Vital signs Vitals: Temp Pulse Resp BP Pulse Ox 98.8 F 113 H 18 141/100 H 99 11/29/19 08:08 11/29/19 08:08 11/29/19 08:08 11/29/19 08:08 11/29/19 08:08 Course - Re-evaluation Re-evalutation: 11/29/19 09:21 Acute on chronic pancreatitis likely flaring secondary to missed education of the patient where he is resuming a normal diet and drinking alcohol. Will check lipase but does not need imaging is minimally tender will treat with medication and plan for discharge with resuming liquid diet. 11/29/19 14:34 Lipase normal labs otherwise normal. Tolerating p.o. Discussed diet liquid diet alcohol eversion etc. I have discussed with the patient there likely diagnosis, aftercare plan, follow-up plans and my usual and customary return precautions. They verbalized understanding of this. - Vital Signs Vital signs: Temp Pulse Resp BP Pulse Ox 97.9 F 74 18 128/85 H 97 11/29/19 11:37 11/29/19 11:37 11/29/19 11:37 11/29/19 11:37 11/29/19 11:37 - Laboratory Result Diagrams: 11/29/19 09:31 11/29/19 09:31 Laboratory results interpreted by me: 11/29/19 11/29/19 09:31 09:31 MCV 98 H MCH 34.5 H Urine Urobilinogen 2.0 H Urine Ascorbic Acid 40 H Discharge - Discharge Clinical Impression: Acute pancreatitis Qualifiers: Pancreatitis type: other Acute pancreatitis complication: unspecified Qualified Code(s): K85.80 - Other acute pancreatitis without necrosis or infection Condition: Good Disposition: HOME, SELF-CARE Instructions: Pancreatitis (OM) Prescriptions: Promethazine HCl [Phenergan 25 mg Supp.rect] 1 supp CO Q6H #12 supp.rect Referrals: VINAY WATERMAN MD [Primary Care Provider] - Follow up as needed
[2019-11-29 10:10] LABS: ABSOLUTE BASOPHILS # (AUTO) 0.1 10^3/uL (0.0-0.2); ABSOLUTE EOSINOPHILS # (AUTO) 0.1 10^3/uL (0.0-0.6); ABSOLUTE LYMPHOCYTES (AUTO) 2.1 10^3/uL (0.5-4.7); ABSOLUTE MONOCYTES (AUTO) 0.6 10^3/uL (0.1-1.4); ABSOLUTE NEUT (AUTO) 5.8 10^3/uL (1.7-8.2); BASOPHILS % (AUTO) 0.8 % (0-2); EOSINOPHILS % (AUTO) 1.2 % (0-6); HEMATOCRIT 44.9 % (37.9-51.0); HEMOGLOBIN 15.8 g/dL (13.5-17.0); LYMPHOCYTES % (AUTO) 24.1 % (13-45); MEAN CORPUSCULAR HEMOGLOBIN 34.5 pg (27.0-33.4); MEAN CORPUSCULAR HGB CONC 35.3 g/dL (32.0-36.0); MEAN CORPUSCULAR VOLUME 98 fl (80-97); MONOCYTES % (AUTO) 6.8 % (3-13); PLATELET COUNT 382 10^3/uL (150-450); RED BLOOD COUNT 4.59 10^6/uL (4.35-5.55); RED CELL DISTRIBUTION WIDTH 13.5 % (11.5-14.0); SEGMENTED NEUTROPHILS % (AUTO) 67.1 % (42-78); TOTAL CELLS COUNTED % (AUTO) 100 %; WHITE BLOOD COUNT 8.6 10^3/uL (4.0-10.5)
[2019-11-29 10:27] LABS: ALBUMIN 4.6 g/dL (3.5-5.0); ALKALINE PHOSPHATASE 52 U/L (38-126); ANION GAP 9 (5-19); ASPARTATE AMINO TRANSFERASE 26 U/L (17-59); BILIRUBIN,DIRECT 0.3 mg/dL (0.0-0.4); BILIRUBIN,TOTAL 0.6 mg/dL (0.2-1.3); BLOOD UREA NITROGEN 15 mg/dL (7-20); CALCIUM 9.6 mg/dL (8.4-10.2); CARBON DIOXIDE 25 mmol/L (22-30); CHLORIDE 103 mmol/L (98-107); GLUCOSE 90 mg/dL (75-110); POTASSIUM 4.8 mmol/L (3.6-5.0); TOTAL PROTEIN 7.4 g/dL (6.3-8.2)
[2019-11-29 10:30] LABS: APPEARANCE,URINE CLEAR; BILIRUBIN,URINE NEGATIVE (NEGATIVE); COLOR,URINE YELLOW; GLUCOSE, URINE NEGATIVE (NEGATIVE); KETONES,URINE NEGATIVE (NEGATIVE); LEUKOCYTE ESTERASE,URINE NEGATIVE (NEGATIVE); NITRITE,URINE NEGATIVE (NEGATIVE); PROTEIN,URINE NEGATIVE (NEGATIVE); URINE SPECIFIC GRAVITY 1.021
[2019-11-29 11:34] VITALS: BP 128/85
== END 2019-11-29 11:34 | disposition home or self-care (01) ==
LOC: ER 08:03
DX: K85.80 Other acute pancreatitis without necrosis or infection (principal); R10.9 Unspecified abdominal pain; R11.0 Nausea; Z79.899 Other long term (current) drug therapy; Z88.8 Allergy status to other drugs, medicaments and biological substances; F17.200 Nicotine dependence, unspecified, uncomplicated; J45.909 Unspecified asthma, uncomplicated
CPT/HCPCS: 99284; 96374; 96375; 36415; 83690; 85025; 80053; 81001; J3010; J1885; J2765

== ENCOUNTER 2019-12-08 08:19 | Emergency (ER) | payer MEDICARE, MEDICAID ==
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
[2019-12-08 09:27] LABS: ABSOLUTE BASOPHILS # (AUTO) 0.1 10^3/uL (0.0-0.2); ABSOLUTE EOSINOPHILS # (AUTO) 0.1 10^3/uL (0.0-0.6); ABSOLUTE LYMPHOCYTES (AUTO) 2.4 10^3/uL (0.5-4.7); ABSOLUTE MONOCYTES (AUTO) 0.6 10^3/uL (0.1-1.4); ABSOLUTE NEUT (AUTO) 5.4 10^3/uL (1.7-8.2); BASOPHILS % (AUTO) 0.8 % (0-2); EOSINOPHILS % (AUTO) 1.6 % (0-6); HEMATOCRIT 44.8 % (37.9-51.0); HEMOGLOBIN 15.7 g/dL (13.5-17.0); LYMPHOCYTES % (AUTO) 27.7 % (13-45); MEAN CORPUSCULAR HEMOGLOBIN 34.5 pg (27.0-33.4); MEAN CORPUSCULAR VOLUME 99 fl (80-97); MONOCYTES % (AUTO) 6.7 % (3-13); PLATELET COUNT 397 10^3/uL (150-450); RED BLOOD COUNT 4.54 10^6/uL (4.35-5.55); SEGMENTED NEUTROPHILS % (AUTO) 63.2 % (42-78); TOTAL CELLS COUNTED % (AUTO) 100 %; WHITE BLOOD COUNT 8.6 10^3/uL (4.0-10.5)
[2019-12-08 09:35] LABS: APPEARANCE,URINE CLEAR; BILIRUBIN,URINE NEGATIVE (NEGATIVE); COLOR,URINE YELLOW; GLUCOSE, URINE NEGATIVE (NEGATIVE); KETONES,URINE TRACE mg/dL (NEGATIVE); LEUKOCYTE ESTERASE,URINE NEGATIVE (NEGATIVE); NITRITE,URINE NEGATIVE (NEGATIVE); PROTEIN,URINE NEGATIVE (NEGATIVE); URINE SPECIFIC GRAVITY 1.027
[2019-12-08 09:42] LABS: ALBUMIN 4.2 g/dL (3.5-5.0); ALKALINE PHOSPHATASE 51 U/L (38-126); ANION GAP 5 (5-19); ASPARTATE AMINO TRANSFERASE 21 U/L (17-59); BILIRUBIN,DIRECT 0.3 mg/dL (0.0-0.4); BILIRUBIN,TOTAL 0.5 mg/dL (0.2-1.3); BLOOD UREA NITROGEN 16 mg/dL (7-20); CALCIUM 9.4 mg/dL (8.4-10.2); CARBON DIOXIDE 26 mmol/L (22-30); CHLORIDE 110 mmol/L (98-107); GLUCOSE 92 mg/dL (75-110); POTASSIUM 4.4 mmol/L (3.6-5.0); TOTAL PROTEIN 6.9 g/dL (6.3-8.2)
[2019-12-08 09:44] LABS: ACETAMINOPHEN < 10 ug/mL (10-30); ALCOHOL < 10 mg/dL (NONE DETECTED); SALICYLATE < 1.0 mg/dL (2.0-20.0)
[2019-12-08] MEDS ORDERED: NORMAL SALINE 1000 ML 1,000 ML IV ONE (10:54)
--- NOTE | 2019-12-08 11:03 | RADIOLOGY REPORT (SQ) ---
EXAM DESCRIPTION: CT ABD/PELVIS WITH IV ONLY IMAGES COMPLETED DATE/TIME: 12/08/2019 10:43 am REASON FOR STUDY: epigastric abd pain, bilateral flank pain, +nausea COMPARISON: None. TECHNIQUE: CT scan of the abdomen and pelvis performed using helical scanning technique with dynamic intravenous contrast injection. No oral contrast. Images reviewed with lung, soft tissue, and bone windows. Reconstructed coronal and sagittal MPR images reviewed. Delayed images for evaluation of the urinary system also acquired. All images stored on PACS. All CT scanners at this facility use dose modulation, iterative reconstruction, and/or weight based d osing when appropriate to reduce radiation dose to as low as reasonably achievable (ALARA). [facility]: Dose Right [facility]: CareDose [facility]: Dose Right [facility]: Teradose 4D [facility]: RoomReveal CONTRAST TYPE AND DOSE: contrast/concentration: Isovue 350.00 mmol/ml; Total Contrast Delivered: 83. 0 ml; Total Saline Delivered: 69.0 ml RENAL FUNCTION: GFR > 60. RADIATION DOSE: CT Rad equipment meets quality standard of care and radiation dose reduction techniq ues were employed. CTDIvol: 5.4 - 6.8 mGy. DLP: 611 mGy-cm.. LIMITATIONS: None. FINDINGS: LOWER CHEST: No significant findings. No nodules or infiltrates. LIVER: Normal size. No masses. No dilated ducts. SPLEEN: Normal size. No focal lesions. PANCREAS: No masses. No significant calcifications. No adjacent inflammation or peripancreatic fluid collections. Pancreatic duct not dilated. GALLBLADDER: No identified stones by CT criteria. No inflammatory changes to suggest cholecystitis. ADRENAL GLANDS: No significant masses or asymmetry. RIGHT KIDNEY AND URETER: No solid masses. No significant calcifications. No hydronephrosis or hyd roureter. LEFT KIDNEY AND URETER: No solid masses. No significant calcifications. No hydronephrosis or hydr oureter. AORTA AND VESSELS: Atherosclerotic calcifications. No aneurysm. RETROPERITONEUM: No retroperitoneal adenopathy, hemorrhage or masses. BOWEL AND PERITONEAL CAVITY: No masses or inflammatory changes. No free fluid or peritoneal masses. APPENDIX: Not visualized. PELVIS: No mass. No free fluid. Normal bladder. ABDOMINAL WALL: No masses. No hernias. BONES: No significant or acute findings. OTHER: No other significant finding. IMPRESSION: No acute findings. TECHNICAL DOCUMENTATION: JOB ID: [id number] Quality ID # [id number]: Final reports with documentation of one or more dose reduction techniques (e.g., Au tomated exposure control, adjustment of the mA and/or kV according to patient size, use of iterative reconstruction technique) 2010 [employer]- All Rights Reserved Reading location - IP/workstation name: [email or web address]
[2019-12-08 12:16] LABS: URINE AMPHETAMINES SCREEN NEGATIVE; URINE BARBITURATES SCREEN NEGATIVE; URINE BENZODIAZEPINES SCREEN NEGATIVE; URINE COCAINE SCREEN NEGATIVE; URINE MARIJUANA (THC) SCREEN NEGATIVE; URINE METHADONE SCREEN NEGATIVE; URINE PHENCYCLIDINE SCREEN NEGATIVE
[2019-12-08 12:44] VITALS: BP 139/76
--- NOTE | 2019-12-08 15:17 | PSYCHOLOGICAL NOTE ---
Psych Note - Psych Note Date seen by psych provider: 12/08/19 Time seen by psych provider: 11:17 - Evaluation with patient from [id number]. Psych Note: Patient is a 39 year old male who presented to the Emergency Department this morning via privately owned vehicle for medical compliant of abdominal pain with intermittent diarrhea the last 10 days. Medical staff noted patient felt he was being poisoned and had reported being off psychiatric medications since 11/03/2019 because he doesn't need them anymore. Patient reported "it's my choice to take medications, I'm here for medical, why does it always have to become mental health?" He identified his outpatient med ication provider was Dr. Xie who unfortunately , his primary care physician Dr. Liang was writing his psychiatric medication prescriptions temporarily, and Dr. Xie's team linked him back to Dr. Templeton. He stated he had two visits with Dr. Templeton over the phone and they are telling him it'll cost $135 each visit. He stated "my medications themselves are cheap, but that monthly visit cost is expensive, I only get just over $1000 per month from [facility]." Patient denied suicidal and homicidal ideation. He did not display or endorse responding to internal stimuli. He denied drug use and admitted to having a couple Bloody Opal 5-6 days ago. Patient stated he is diagnosed with ADHD and PTSD. He reported his medications are: Seroquel 300MG, Celexa 10-20MG, Adderall Extended Release and Instant, and currently he is only taking Clonidine. He admitted to previous mental health hospitalization and noted most recent was at [facility] 11/03/2019 (note would have been around the time he said he stopped taking medication). Patient was alert and oriented to self, person, place, time and situation. Mood was euthymic with congruent affect. He denied current suicidal and homicidal ideation. Patient did not appear to be responding to internal stimuli as evidenced by fair eye contact, answering questions appropriately when addressed, ability to express self/wants/needs, and able to carry on dialogue conversation. Thought processes were linear and organized. Conversational speech was within normal limits for rate, tone and prosody. Intellectual abilities are estimated to be average. Insight, judgment and impulse control were fair as evidenced by appropriate interactions and being engaged. Chart review revealed patient has been seen in the Emergency Department since 2012 for mental health related issues. In January [address] Templeton for outpatient medication management. He reported being on Suboxone at that time, as well as Wellbutrin, Celexa, [place] and Prilosec. Had diagnoses of Bipolar II, PTSD, Borderline Personality Disorder, Unspecified Anxiety and history of opioid abuse. At that visit he reported 5 previous hospitalizations with a couple at [facility]. Pharmacy connected to [facility] had Dr. Templeton prescribing Adderall 20MG daily and at noon on 11/04/2019. It also had Dr. Maguire prescribing Celexa 40MG daily and Seroquel 300MG at night on 12/03/2019 and 12/04/2019. Clinical Presentation: Noncompliant with prescribed medications for just over a month per patient History of PTSD, ADHD and Borderline Personality Disorder Impression/Plan: Patient is cleared from acute psychiatric services. He denied current suicidal and homicidal ideation. He did not display or endorse responding to internal stimuli. He had fair eye contact, answered questions appropriately, and was able to express self/wants/needs. Provided patient with the outpatient mental health resource sheet which highlighted bot local mobile crisis numbers, documented walk in to [facility] first thing Tuesday (12/11/2019, next walk in day) morning to initiate services, and encouraged him to continue with primary care doctor coordination with temporarily writing prescriptions until he gets appointments with [facility]. Consulted with Dr. Pepe regarding the management and care of patient. ED Physician in agreement with recommendations.
--- NOTE | 2019-12-10 02:22 | EKG REPORT ---
SEVERITY:- ABNORMAL ECG - SINUS RHYTHM PROBABLE LEFT ATRIAL ABNORMALITY LEFT AXIS DEVIATION CONSIDER INFERIOR INFARCT : Confirmed by: Suleiman Taylor MD 10-Dec-2019 02:22:08
== END 2019-12-08 12:43 | disposition home or self-care (01) ==
LOC: ER 08:19
DX: R10.13 Epigastric pain (principal); F17.200 Nicotine dependence, unspecified, uncomplicated; Z91.19 Patient's noncompliance with other medical treatment and regimen
CPT/HCPCS: 93005; 99285; 96360; 36415; 80307 ×4; 83690; 85025; 80053; 81001; 84484; 74177; 93010; J7030

== ENCOUNTER 2019-12-16 21:23 | Emergency (ER) | payer MEDICARE, MEDICAID ==
--- NOTE | 2019-12-16 21:47 | ER Document Report ---
ED Medical Screen (RME) - General Chief Complaint: Psych Problem Stated Complaint: PSYCH Time Seen by Provider: 12/16/19 21:36 Primary Care Provider: VINAY WATERMAN MD [Primary Care Provider] - Follow up as needed Mode of Arrival: Ambulatory Information source: Patient Notes: 39-year-old male presented to ED for complaint of mental health issues. He states he was seen in [facility] that she committed suicide in March and so he has been going between doctors and his primary care is Dr. Waterman. He states that the mental health doctor he was going to charge him too much and he could not afford to go to him he could not keep up with his medicines. He states he has had no mental health medicine since November 02. He states he does have a history of PTSD ADHD schizoaffective schizophrenia borderline personality disorder and general anxiety disorder. He states he has not had any medicines in a long time and his suicidal ideations are getting worse and is afraid did not get seen by somebody or get some treatment. Patient states she smokes about 5 or 6 pack/day drinks weekly and does not use any illicit drugs. He has significant flight of ideas at this time I have greeted and performed a rapid initial assessment of this patient. A comprehensive ED assessment and evaluation of the patient, analysis of test results and completion of medical decision making process will be conducted by an additional ED providers. TRAVEL OUTSIDE OF THE [place] IN LAST 30 DAYS: No - Related Data Allergies/Adverse Reactions: carbamazepine [From Tegretol] Allergy (Verified 12/08/19 08:48) Past Medical History - Social History Family history: Reviewed & Not Pertinent - Past Medical History Cardiac Medical History: Denies: Hx Hypertension Pulmonary Medical History: Reports: Hx Asthma Neurological Medical History: Reports: Hx Migraine, Hx Seizures - After taking the medication Renal/ Medical History: Denies: Hx Peritoneal Dialysis GI Medical History: Reports: Hx Crohn's Disease, Hx Gastroesophageal Reflux Disease, Hx Irritable Bowel, Hx Ulcer Psychiatric Medical History: Reports: Hx Anxiety, Hx Attention Deficit Hyperactivity Disorder, Hx Bipolar Disorder, Hx Depression, Hx Post Traumatic Stress Disorder, Hx Schizophrenia Traumatic Medical History: Reports: Hx Fractures - collar bone and arm as child Past Surgical History: Reports: Hx Oral Surgery - wisdom teeth - Immunizations Immunizations up to date: Yes Hx Diphtheria, Pertussis, Tetanus Vaccination: Yes - reports had tetanus immunization 6 months ago Physical Exam - Vital signs Vitals: Temp Pulse Resp BP Pulse Ox 98.1 F 91 16 181/99 H 97 12/16/19 21:36 12/16/19 21:36 12/16/19 21:36 12/16/19 21:36 12/16/19 21:36 Course - Vital Signs Vital signs: Temp Pulse Resp BP Pulse Ox 98.1 F 91 16 181/99 H 97 12/16/19 21:36 12/16/19 21:36 12/16/19 21:36 12/16/19 21:36 12/16/19 21:36 Doctor's Discharge - Discharge Referrals: VINAY WATERMAN MD [Primary Care Provider] - Follow up as needed
[2019-12-16 22:39] LABS: ABSOLUTE BASOPHILS # (AUTO) 0.1 10^3/uL (0.0-0.2); ABSOLUTE EOSINOPHILS # (AUTO) 0.2 10^3/uL (0.0-0.6); MONOCYTES % (AUTO) 7.7 % (3-13); TOTAL CELLS COUNTED % (AUTO) 100 %
[2019-12-16 22:47] LABS: APPEARANCE,URINE CLEAR; BILIRUBIN,URINE NEGATIVE (NEGATIVE); COLOR,URINE STRAW; GLUCOSE, URINE NEGATIVE (NEGATIVE); KETONES,URINE NEGATIVE (NEGATIVE); LEUKOCYTE ESTERASE,URINE NEGATIVE (NEGATIVE); NITRITE,URINE NEGATIVE (NEGATIVE); PROTEIN,URINE NEGATIVE (NEGATIVE); URINE SPECIFIC GRAVITY 1.003; UROBILINOGEN,URINE NEGATIVE mg/dL (<2.0)
[2019-12-16 22:56] LABS: ABSOLUTE LYMPHOCYTES (AUTO) 3.9 10^3/uL (0.5-4.7); ABSOLUTE MONOCYTES (AUTO) 0.8 10^3/uL (0.1-1.4); BASOPHILS % (AUTO) 0.6 % (0-2); EOSINOPHILS % (AUTO) 2.1 % (0-6); HEMATOCRIT 46.4 % (37.9-51.0); HEMOGLOBIN 16.3 g/dL (13.5-17.0); LYMPHOCYTES % (AUTO) 35.1 % (13-45); MEAN CORPUSCULAR HEMOGLOBIN 34.6 pg (27.0-33.4); MEAN CORPUSCULAR VOLUME 99 fl (80-97); PLATELET COUNT 415 10^3/uL (150-450); RED BLOOD COUNT 4.69 10^6/uL (4.35-5.55); RED CELL DISTRIBUTION WIDTH 14.3 % (11.5-14.0); SEGMENTED NEUTROPHILS % (AUTO) 54.5 % (42-78)
[2019-12-16 23:00] LABS: URINE AMPHETAMINES SCREEN NEGATIVE; URINE BARBITURATES SCREEN NEGATIVE; URINE BENZODIAZEPINES SCREEN NEGATIVE; URINE COCAINE SCREEN NEGATIVE; URINE MARIJUANA (THC) SCREEN NEGATIVE; URINE METHADONE SCREEN NEGATIVE; URINE PHENCYCLIDINE SCREEN NEGATIVE
[2019-12-16 23:09] LABS: ACETAMINOPHEN 10 ug/mL (10-30); ALBUMIN 4.5 g/dL (3.5-5.0); ALCOHOL 57 mg/dL (NONE DETECTED); ALKALINE PHOSPHATASE 58 U/L (38-126); ANION GAP 9 (5-19); ASPARTATE AMINO TRANSFERASE 24 U/L (17-59); BILIRUBIN,DIRECT 0.3 mg/dL (0.0-0.4); BILIRUBIN,TOTAL 0.4 mg/dL (0.2-1.3); BLOOD UREA NITROGEN 13 mg/dL (7-20); CALCIUM 9.6 mg/dL (8.4-10.2); CARBON DIOXIDE 24 mmol/L (22-30); CHLORIDE 107 mmol/L (98-107); GLUCOSE 81 mg/dL (75-110); POTASSIUM 4.3 mmol/L (3.6-5.0); SALICYLATE 4.6 mg/dL (2.0-20.0); TOTAL PROTEIN 7.2 g/dL (6.3-8.2)
[2019-12-16] MEDS ORDERED: QUETIAPINE FUMARATE 100 MG TABLET PO ONE (23:09)
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
--- NOTE | 2019-12-17 00:23 | EKG REPORT ---
SEVERITY:- ABNORMAL ECG - SINUS RHYTHM PROBABLE LEFT ATRIAL ABNORMALITY BORDERLINE LEFT AXIS DEVIATION BORDERLINE INFERIOR Q WAVES ABNRM R PROG, CONSIDER ASMI OR LEAD PLACEMENT : Confirmed by: Fritz Jimenez 17-Dec-2019 00:23:10
[2019-12-17] MEDS ORDERED: IBUPROFEN 600 MG TABLET PO ONE ×2 (11:44→17:18)
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
[2019-12-17 20:13] VITALS: BP 156/104
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
== END 2019-12-17 20:49 | disposition home or self-care (01) ==
LOC: ER 21:23
DX: F20.0 Paranoid schizophrenia (principal); Z91.14 Patient's other noncompliance with medication regimen; R45.851 Suicidal ideations; R07.89 Other chest pain; F10.120 Alcohol abuse with intoxication, uncomplicated; Y90.2 Blood alcohol level of 40-59 mg/100 ml; J45.909 Unspecified asthma, uncomplicated; Z88.8 Allergy status to other drugs, medicaments and biological substances; F17.200 Nicotine dependence, unspecified, uncomplicated
CPT/HCPCS: 93005; 99284; 36415; 80307 ×4; 85025; 80053; 81001; 93010; A9270 ×2